=== PATIENT | female | born 1990 | race Caucasian/White ===

== ENCOUNTER 2017-07-26 09:04 | Inpatient (IN) | payer MEDICAID ==
[~2017-07-26] VITALS: Ht 152.4 cm; Wt 65.6 kg
[~2017-07-26 09:04] MED LIST: AMOX500T PO; PREN1TAB17 BU; PREN1TAB17 PO; PREN1TAB62 PO
--- NOTE | 2017-07-26 09:37 | RADRPT ---
PROCEDURE: US OB biophysical profile. CLINICAL INDICATION: decreased movements, low CARMEN-A TECHNIQUE: Multiple sonographic images of the pelvis were obtained. The images were reviewed on a PACS workstation. COMPARISON: No prior studies are available for comparison. FINDINGS: There is a single viable intrauterine gestation. Cardiac activity is present with 137 beats per min adrienne. There is a vertex presentation. The placenta is anterior. There is no evidence of placental abruption. There is a slightly increased amount of amniotic fluid with an KLAUS = 7.8 cm. Biophysical profile: movement 2/2 tone 2/2. breathing 2/2 KLAUS 2/2 Total 04/09 RPTAT: AA . IMPRESSION: Normal biophysical profile. Mild oligohydramnios. . .Ethan Austin MD, Date Time Electronically viewed and signed by .Ethan Austin MD, MD on 07/26/2017 09:37 .S/
[2017-07-26 09:49] VITALS: BP 121/74; PULSE 82; Ht 152.4 cm; Wt 65.6 kg
[2017-07-26] MEDS ORDERED: LACTATED RINGER'S 1,000 ML IV SCH (12:20)
[2017-07-26] MEDS: LACTATED RINGER'S 1,000 ML IV SCH ×2 (16:30→23:10)
--- NOTE | 2017-07-26 16:30 | HP ---
Date/Time of Note Date/Time of Note DATE: 07/26/17 TIME: 16:27 OB - History Hx of Present Chief Complaint: Antepartum testing Estimated Due Date: Aug 13, 2017 : 2 Para: 1 Spontaneous : 0 Therapeutic : 0 Care: Good Care Ultrasounds: Normal mid trimester US Obstetrical Complications: None Medical Complications: None Past Family/Social History * Past Medical, Surgical, Family and Obstetric Histories reviewed from chart. OB Admission Exam Vital Signs Vital Signs Vital Signs Date Time Temp Pulse Resp B/P Pulse Ox O2 Delivery O2 Flow Rate FiO2 07/26/17 09:49 98.5 82 121/74 Physical Exam HEENT: WNL Heart: Rhythm Normal Lungs: Clear, Equal Abdomen: WNL Extremities: Normal Reflexes: Normal Heart Rate: 130's Accelerations: Accelerations Present Decelerations: No Decelerations Varibility: Moderate OB Assessment/Plan Reason for admission: other (oligohydramnios) Plan: Other Other plan: Admit IV hydration Continuous monitoring Repeat KLAUS on 07/27/2017. ALKA REDMAN MD Jul 26, 2017 16:30
[2017-07-27] MEDS: LACTATED RINGER'S 1,000 ML IV SCH ×2 (05:30→11:53)
--- NOTE | 2017-07-27 09:12 | RADRPT ---
PROCEDURE: US evaluation of amniotic fluid volume. CLINICAL INDICATION: Low amniotic fluid volume. TECHNIQUE: Multiple sonographic images of the gravid uterus were obtained utilizing [place]scale [place]. Sagittal and transverse images were obtained. The images were reviewed on a PACS workstation . KLAUS was measured. COMPARISON: Biophysical profile dated 07/26/2017. FINDINGS: There is a single live intrauterine . heart rate is 146 beats per minute. Position is cephalic. Placenta is anterior grade II with no abruption or previa. KLAUS is 11.1 cm. (Normal = 5-20 cm.) IMPRESSION: 1. KLAUS is 11.1 cm. RPTAT: QQ .Irving Adhikari MD, MD Date Time Electronically viewed and signed by .Irving Adhikari MD, on 07/27/2017 09:11 .R/
--- NOTE | 2017-07-27 17:27 | QN ---
Documentation Comment NST Category I KLAUS 11 ALKA REDMAN MD Jul 27, 2017 17:27
--- NOTE | 2017-07-27 17:28 | DS ---
Date/Time of Note Date/Time of Note DATE: 07/27/17 TIME: 17:27 Obstetrical Discharge Record Final Diagnosis Final Diagnosis: Term not delivered Other Final Diagnosis oligohydramnios Condition on Discharge Physical Assessment Voiding: Yes Bowel Movement: Yes Calf Tenderness: No Patient Condition: Stable ALKA REDMAN MD Jul 27, 2017 17:28
== END 2017-07-27 18:06 | disposition home or self-care (01) | DRG 782 ==
LOC: OBT 09:04 → L-D 09:05 → OBT 12:05 → UNDOADMIN 12:05 → L-D 12:05 → OBG 14:00
PROVIDERS: ADMIT Obstetrics & Gynecology; ATTEND Obstetrics & Gynecology
DX: O41.00X0 Oligohydramnios, unspecified trimester, not applicable or unspecified (principal); Z3A.00 Weeks of gestation of pregnancy not specified
CPT/HCPCS: 76815; 76818; G0463; J7120

== ENCOUNTER 2017-07-31 11:11 | Inpatient (IN) | payer MEDICAID ==
[~2017-07-31] VITALS: Ht 157.5 cm; Wt 65.0 kg
[~2017-07-31 11:11] MED LIST changes: -PREN1TAB17 PO; -PREN1TAB62 PO
[2017-07-31 12:08] VITALS: Ht 157.5 cm; Wt 65.0 kg
[2017-07-31 12:09] VITALS: BP 124/80; PULSE 90; RESP 18
[2017-07-31] MEDS ORDERED: morphine SULFATE/PF (10 MG/10 ML) INJ ONE (12:55)
[2017-07-31] MEDS ORDERED: FENTAnyl 50 MCG/ML VIAL ONE (12:55)
[2017-07-31] MEDS ORDERED: PHENYLephrine (100 MCG/ML) 5ML SYG ONE (13:07)
[2017-07-31] MEDS ORDERED: DEXAMETHASONE 4 MG/ML 1 ML INJ ONE (13:08)
--- NOTE | 2017-07-31 13:14 | RADRPT ---
PROCEDURE: US OB biophysical profile. CLINICAL INDICATION: decreased movements, contractions TECHNIQUE: Multiple sonographic images of the pelvis were obtained. The images were reviewed on a PACS workstation. COMPARISON: US PELVIS 07/27/2017 FINDINGS: There is a single viable intrauterine gestation. Cardiac activity is present with 150 beats per min [place]. There is a vertex presentation. The placenta is anterior. There is no evidence of placental abruption. There is a decreased amount of amniotic fluid with an KLAUS = 6.0 cm. Biophysical profile: movement 2/2 tone 2/2. breathing 2/2 KLAUS 2/2 Total 04/09 RPTAT: AA . IMPRESSION: Normal biophysical profile. Oligohydramnios. . .Ethan Austin MD, Date Time Electronically viewed and signed by .Ethan Austin MD, on 07/31/2017 13:13 .S/
[2017-07-31 13:30] LABS: ADD UMIC YES; UR ASCORBIC ACID NEGATIVE (NEGATIVE); UR BILIRUBIN (Dip) NEGATIVE (NEGATIVE); UR BLOOD (Dip) NEGATIVE (NEGATIVE); UR CLARITY CLEAR (CLEAR); UR COLOR STRAW (YELLOW); UR GLUCOSE (Dip) NEGATIVE (NEGATIVE); UR KETONES (Dip) NEGATIVE (NEGATIVE); UR LEUKOCYTE ESTERASE (Dip) 1+ Leu/ul (NEGATIVE); UR NITRITE (Dip) NEGATIVE (NEGATIVE); UR RBC 1 /HPF (0-5); UR SPECIFIC GRAVITY (Dip) 1.005 (1.003-1.030); UR SQUAMOUS EPITHELIAL CELL FEW /HPF (FEW); UR TOTAL PROTEIN (Dip) NEGATIVE (NEGATIVE); UR UROBILINOGEN (Dip) NEGATIVE (NEGATIVE)
[2017-07-31] MEDS ORDERED: ONDANSETRON 4 MG INJ ONE (13:53)
[2017-07-31] MEDS ORDERED: LACTATED RINGER'S 1,000 ML IV ONE (14:00)
[2017-07-31] MEDS ORDERED: LIDOCAINE 1% (MPF) 30 ML INJ INJ PRN (14:00)
[2017-07-31] MEDS ORDERED: CARBOPROST 250 MCG INJ IM PRN (14:00)
[2017-07-31] MEDS ORDERED: MISOPROSTOL 200 MCG TAB PR PRN (14:00)
[2017-07-31] MEDS ORDERED: BUTORPHANOL 2 MG INJ IV PRN (14:00)
[2017-07-31] MEDS ORDERED: OXYTOCIN 30 UNITS/LR 500 ML IV PRN (14:00)
[2017-07-31] MEDS ORDERED: METHYLERGONOVINE 0.2 MG INJ IM PRN (14:00)
[2017-07-31] MEDS ORDERED: LACTATED RINGER'S 1,000 ML IV PRN (14:00)
[2017-07-31] MEDS ORDERED: IBUPROFEN 600 MG TAB PO PRN (14:00)
[2017-07-31] MEDS ORDERED: OXYTOCIN 30 UNITS/LR 500 ML IV SCH ×2 (14:00)
[2017-07-31] MEDS: LACTATED RINGER'S 1,000 ML IV SCH ×3 (14:22→21:38)
[2017-07-31 14:30] LABS: BASOPHILS % 0.1 % (0.0-2.0); EOSINOPHILS % 0.2 % (0.0-7.0); HEMATOCRIT 33.9 % (37.0-47.0); HEMOGLOBIN 11.5 g/dl (12.0-16.0); LYMPHOCYTES # 1.6 10^3/ul (0.8-2.9); LYMPHOCYTES % 18.5 % (15.0-51.0); MEAN CORPUSCULAR HEMOGLOBIN 27.4 pg (29.0-33.0); MEAN CORPUSCULAR HGB CONC 33.9 g/dl (32.0-37.0); MEAN CORPUSCULAR VOLUME 80.9 fl (82.0-101.0); MEAN PLATELET VOLUME 11.7 fl (7.4-10.4); MONOCYTE # 0.3 10^3/ul (0.3-0.9); MONOCYTES % 3.9 % (0.0-11.0); NEUTROPHIL # 6.6 10^3/ul (1.6-7.5); NEUTROPHILS % 76.7 % (39.0-77.0); PLATELET COUNT 207 10^3/UL (140-415); RED BLOOD COUNT 4.19 10^6/ul (4.20-5.40); RED CELL DISTRIBUTION WIDTH 13.5 % (11.5-14.5); WHITE BLOOD COUNT 8.6 10^3/ul (4.8-10.8)
[2017-07-31 14:43] LABS: INR 2.53; PROTIME 27.6 Sec (12.2-14.2); PT RATIO 2.2
--- NOTE | 2017-07-31 15:31 | HP ---
Date/Time of Note Date/Time of Note DATE: 07/31/17 TIME: 15:27 OB - History Hx of Present Chief Complaint: leakage of fluid Estimated Due Date: Aug 13, 2017 : 2 Para: 1 Spontaneous : 0 Therapeutic : 0 Care: Good Care Ultrasounds: Normal mid trimester US Obstetrical Complications: None Medical Complications: None Past Family/Social History * Past Medical, Surgical, Family and Obstetric Histories reviewed from chart. GBS Status: Negative OB Admission Exam Vital Signs Vital Signs Vital Signs Date Time Temp Pulse Resp B/P Pulse Ox O2 Delivery O2 Flow Rate FiO2 07/31/17 12:09 98.5 90 18 124/80 97 Room Air Physical Exam HEENT: WNL Heart: Rhythm Normal Lungs: Clear, Equal Abdomen: WNL Extremities: Normal Reflexes: Normal Cervical Dilatation: 1cm Effacement: 50% Station: -1 Membranes: Intact Heart Rate: 120's Accelerations: Accelerations Present Decelerations: No Decelerations Varibility: Moderate Last 72 hours Lab Results CBC & BMP 07/31/17 14:00 OB Assessment/Plan Reason for admission: other Other Assessment: oligohydramnios Plan: Other Other plan: IV hydration Continuous monitoring Rerpeat KLAUS on 08/01/2017 ALKA REDMAN MD Jul 31, 2017 15:31
[2017-07-31 16:21] LABS: PARTIAL THROMBOPLASTIN TIME 26.8 Sec (25.0-35.0)
[2017-08-01] MEDS: LACTATED RINGER'S 1,000 ML IV SCH ×4 (04:39→18:00)
[2017-08-01] MEDS ORDERED: FENTAnyl 2MCG/ML-ROPIV 0.2% 100 ML ONE (07:53)
[2017-08-01] MEDS ORDERED: NALOXONE (0.4 MG/ML) INJ IV PRN (08:30)
[2017-08-01] MEDS: FENTAnyl 2MCG/ML-ROPIV 0.2% 100 ML BAG EPI SCH ×2 (17:25→23:32)
[2017-08-01] MEDS ORDERED: OXYTOCIN 30 UNITS/LR 500 ML IV SCH (19:30)
[2017-08-01] MEDS ORDERED: ONDANSETRON 4 MG INJ IV PRN (21:00)
--- NOTE | 2017-08-02 00:11 | LDN ---
Date/Time of Note Date/Time of Note DATE: 08/02/17 TIME: 00:10 Delivery Summary Weeks of Gestation 38 weeks Placenta Delivered: Spontaneously Meconium: none Episiotomy: No Perineal laceration: 0 Anesthesia type: Epidural Estimated blood loss: 200 Sponge & Needle done & correct: Yes All needle counts correct: Yes Any foreign bodies felt in the: No Problems: Delivery Information Sex Sex: male Apgars 1 Minute: 9 5 Minute: 9 Suctioning Nose & mouth suctioned at mckenna: Yes Delee suction performed: No Umbilical Cord Umbilical cord with: 3 Vessels Cord presentations: no nuchal cord Cord Blood was obtained: Yes Mother & Baby Disposition Disposition Mom & Baby to Maternity; Good: Yes ALKA REDMAN MD Aug 02, 2017 00:11
[2017-08-02] MEDS ORDERED: LACTATED RINGER'S 1,000 ML IV* SCH (00:12)
[2017-08-02] MEDS ORDERED: MISOPROSTOL 200 MCG TAB PR PRN (00:30)
[2017-08-02] MEDS ORDERED: LANOLIN 7 GM TUBE TOP PRN (00:30)
[2017-08-02] MEDS ORDERED: CARBOPROST 250 MCG INJ IM PRN (00:30)
[2017-08-02] MEDS ORDERED: ACETAMINOPHEN 325 MG TAB PO PRN (00:30)
[2017-08-02] MEDS ORDERED: OXYTOCIN 30 UNITS/LR 500 ML IV PRN (00:30)
[2017-08-02] MEDS ORDERED: WITCH HAZEL/GLYCERIN PAD PR PRN (00:30)
[2017-08-02] MEDS ORDERED: HYDROCODONE/APAP (5/325) TAB PO PRN (00:30)
[2017-08-02] MEDS ORDERED: BENZOCAINE 20% 56 ML SPRAY TOP PRN (00:30)
[2017-08-02] MEDS ORDERED: METHYLERGONOVINE 0.2 MG INJ IM PRN (00:30)
[2017-08-02] MEDS ORDERED: DIBUCAINE 1% 30 GM OINT PR PRN (00:30)
[2017-08-02 01:08] LABS: ADD UMIC YES; UR ASCORBIC ACID NEGATIVE (NEGATIVE); UR BILIRUBIN (Dip) NEGATIVE (NEGATIVE); UR BLOOD (Dip) 2+ mg/dL (NEGATIVE); UR CLARITY CLEAR (CLEAR); UR COLOR STRAW (YELLOW); UR GLUCOSE (Dip) NEGATIVE (NEGATIVE); UR KETONES (Dip) 1+ mg/dL (NEGATIVE); UR LEUKOCYTE ESTERASE (Dip) TRACE Leu/ul (NEGATIVE); UR NITRITE (Dip) NEGATIVE (NEGATIVE); UR RBC 15 /HPF (0-5); UR SPECIFIC GRAVITY (Dip) 1.005 (1.003-1.030); UR SQUAMOUS EPITHELIAL CELL FEW /HPF (FEW); UR TOTAL PROTEIN (Dip) NEGATIVE (NEGATIVE); UR UROBILINOGEN (Dip) NEGATIVE (NEGATIVE)
[2017-08-02 01:19] LABS: BASOPHILS % 0.1 % (0.0-2.0); HEMATOCRIT 33.7 % (37.0-47.0); HEMOGLOBIN 11.5 g/dl (12.0-16.0); LYMPHOCYTES # 0.7 10^3/ul (0.8-2.9); LYMPHOCYTES % 4.4 % (15.0-51.0); MEAN CORPUSCULAR HGB CONC 34.1 g/dl (32.0-37.0); MEAN CORPUSCULAR VOLUME 82.2 fl (82.0-101.0); MEAN PLATELET VOLUME 11.6 fl (7.4-10.4); MONOCYTE # 0.6 10^3/ul (0.3-0.9); MONOCYTES % 3.3 % (0.0-11.0); NEUTROPHIL # 15.5 10^3/ul (1.6-7.5); NEUTROPHILS % 91.5 % (39.0-77.0); PLATELET COUNT 205 10^3/UL (140-415); RED CELL DISTRIBUTION WIDTH 13.3 % (11.5-14.5); WHITE BLOOD COUNT 16.9 10^3/ul (4.8-10.8)
[2017-08-02 01:35] LABS: INR 1.02; PROTIME 13.5 Sec (11.9-14.9); PT RATIO 1.1
[2017-08-02 01:40] LABS: ALBUMIN 3.3 g/dl (3.3-4.9); ALBUMIN/GLOBULIN RATIO 0.97; BILIRUBIN,INDIRECT 0.6 mg/dl (0-1.1); BILIRUBIN,TOTAL 0.6 mg/dl (0.2-1.3); CALCIUM 9.7 mg/dl (8.4-10.2); CREATININE 0.49 mg/dl (0.44-1.00); POTASSIUM 3.6 mmol/L (3.5-5.1); TOTAL PROTEIN 6.7 g/dl (6.1-8.1); URIC ACID 5.3 mg/dl (3.1-7.9)
[2017-08-02 01:42] LABS: FIBRIN SPLIT PRODUCT <10 ug/ml (<10)
[2017-08-02 02:30] VITALS: BP 123/68; PULSE 99; RESP 18
[2017-08-02 04:00] VITALS: BP 116/70; PULSE 89; RESP 19
[2017-08-02] MEDS: IBUPROFEN 600 MG TAB PO SCH ×3 (05:29→17:34)
[2017-08-02 08:00] VITALS: BP 104/58; PULSE 88
[2017-08-02] MEDS: SENNA/DOCUSATE NA (8.6MG/50MG) TAB PO SCH ×2 (09:44→20:50)
[2017-08-02 12:00] VITALS: BP 120/76; PULSE 78; RESP 20
[2017-08-02 15:55] VITALS: BP 109/72; PULSE 79; RESP 19
--- NOTE | 2017-08-02 15:59 | PN ---
Date/Time of Note Date/Time of Note DATE: 08/02/17 TIME: 15:57 OB Subjective Subjective Subjective August 02, 2017 Post day 1 Patient is doing well, Ambulatory She is afebrile Abdomen is soft , Fundus is firm Moderate amount of lochia Breasts are soft, Nipples are intact No calf tenderness. Perineum is healing well. Laboratory Tests Test 08/02/17 00:15 08/02/17 00:59 Urine Color STRAW Urine Clarity CLEAR Urine pH 8.0 Urine Specific [place] 1.005 Urine Ketones 1+mg/dL Urine Nitrite NEGATIVEmg/dL Urine Bilirubin NEGATIVEmg/dL Urine Urobilinogen NEGATIVEmg/dL Urine Leukocyte Esterase TRACELeu/ul Urine Microscopic RBC 15/HPF Urine Microscopic WBC 6/HPF Urine Squamous Epithelial Cells FEW/HPF Urine Hemoglobin 2+mg/dL Urine Glucose NEGATIVEmg/dL Urine Total Protein NEGATIVEmg/dl White Blood Count 16.910^3/ul Red Blood Count 4.1010^6/ul Hemoglobin 11.5g/dl Hematocrit 33.7% Mean Corpuscular Volume 82.2fl Mean Corpuscular Hemoglobin 28.0pg Mean Corpuscular Hemoglobin Concent 34.1g/dl Red Cell Distribution Width 13.3% Platelet Count 74328^3/UL Mean Platelet Volume 11.6fl Neutrophils % 91.5% Lymphocytes % 4.4% Monocytes % 3.3% Eosinophils % 0.0% Basophils % 0.1% Nucleated Red Blood Cells % 0.0/100WBC Neutrophils # 15.510^3/ul Lymphocytes # 0.710^3/ul Monocytes # 0.610^3/ul Eosinophils # 0.010^3/ul Basophils # 0.010^3/ul Nucleated Red Blood Cells # 0.010^3/ul Prothrombin Time 13.5Sec Prothrombin Time Ratio 1.1 INR International Normalized Ratio 1.02 Activated Partial Thromboplast Time 27.0Sec Fibrinogen 562.0mg/dl Plasma Fibrin Degradation Products <10ug/ml Sodium Level 141mmol/L Potassium Level 3.6mmol/L Chloride Level 106mmol/L Carbon Dioxide Level 25mmol/L Anion Gap 14 Blood Urea Nitrogen 4mg/dl Creatinine 0.49mg/dl Glucose Level 103mg/dl Uric Acid 5.3mg/dl Calcium Level 9.7mg/dl Total Bilirubin 0.6mg/dl Direct Bilirubin 0.00mg/dl Indirect Bilirubin 0.6mg/dl Aspartate Amino Transf (AST/SGOT) 29IU/L Alanine Aminotransferase (ALT/SGPT) 33IU/L Alkaline Phosphatase 169IU/L Total Protein 6.7g/dl Albumin 3.3g/dl Globulin 3.40g/dl Albumin/Globulin Ratio 0.97 Current Medications Medications (Trade) Dose Ordered Sig/Vivi Route PRN Reason Start Time Stop Time Status Last Admin Dose Admin Morphine Sulfate (Duramorph) 10 mg STK-MED ONCE .ROUTE 07/31/17 12:55 07/31/17 12:56 DC Fentanyl (Sublimaze) 100 mcg STK-MED ONCE .ROUTE 07/31/17 12:55 07/31/17 12:56 DC Phenylephrine HCl (Meek-Synephrine Inj Syg) 500 mcg STK-MED ONCE .ROUTE 07/31/17 13:07 07/31/17 13:08 DC Dexamethasone 4 mg 4 mg STK-MED ONCE .ROUTE 07/31/17 13:08 07/31/17 13:09 DC Lactated Ringer's (Lr) 1,000 ml @ 150 mls/hr Q6H40M IV 07/31/17 13:38 08/02/17 04:04 DC 08/01/17 18:00 Butorphanol Tartrate (Stadol) 2 mg Q2H PRN IV PAIN 07/31/17 14:00 08/02/17 04:04 DC 08/01/17 04:10 Lidocaine 30 ml 30 ml ONCE PRN INJ EPISIOTOMY/TEARING 07/31/17 14:00 08/02/17 04:04 DC Oxytocin/Lactated Ringer's 500 ml @ 125 mls/hr ONCE -MAY REPEAT X1 IV 07/31/17 14:00 08/02/17 04:04 DC Oxytocin/Lactated Ringer's 500 ml @ 125 mls/hr ONCE IV 07/31/17 14:00 08/02/17 04:04 DC 08/02/17 00:26 Ibuprofen 600 mg 600 mg ONCE PRN PO Mild Pain (Pain Score 1-3) 07/31/17 14:00 08/02/17 04:04 DC 08/02/17 00:18 Lactated Ringer's 1,000 ml @ 2,000 mls/hr Q30M PRN IV PRE-EPIDURAL BOLUS 07/31/17 14:00 08/02/17 04:04 DC Oxytocin/Lactated Ringer's 500 ml @ 0 mls/hr ONCE PRN IV For Hemorrhage Management 07/31/17 14:00 08/02/17 04:04 DC Methylergonovine Maleate (Methergine) 0.2 mg ONCE PRN IM VAGINAL BLEEDING 07/31/17 14:00 08/02/17 04:04 DC Carboprost Tromethamine (Hemabate) 250 mcg ONCE PRN IM VAGINAL BLEEDING 07/31/17 14:00 08/02/17 04:04 DC Misoprostol 1000 mcg 1,000 mcg ONCE PRN OR VAGINAL BLEEDING 07/31/17 14:00 08/02/17 04:04 DC Lactated Ringer's (Lr) 1,000 ml @ 1,000 mls/hr Q1H ONCE IV 07/31/17 14:00 07/31/17 14:59 DC 07/31/17 15:26 Ondansetron HCl 4 mg 4 mg STK-MED ONCE .ROUTE 07/31/17 13:53 07/31/17 13:54 DC Fentanyl/ Ropivacaine 100 ml @ ud STK-MED ONCE .ROUTE 08/01/17 07:53 08/01/17 07:54 DC Naloxone HCl (Narcan) 0.2 mg Q2M PRN IV FOR RESP RATE 8 OR LESS 08/01/17 08:30 08/02/17 04:04 DC Fentanyl/ Ropivacaine 100 ml 100 ml EPIDURAL (PCEA) EPI 08/01/17 08:30 08/02/17 04:04 DC 08/01/17 23:32 Oxytocin/Lactated Ringer's 500 ml @ 0 mls/hr Q0M IV 08/01/17 19:30 08/02/17 04:05 DC 08/01/17 19:42 Ondansetron HCl 4 mg 4 mg Q6H PRN IV NAUSEA AND/OR VOMITING 08/01/17 21:00 08/02/17 04:05 DC Lactated Ringer's (Lr) 1,000 ml @ 125 mls/hr Q8H IV* 08/02/17 00:12 08/02/17 04:49 DC Ibuprofen (Motrin) 600 mg Q6 PO 08/02/17 06:00 08/02/17 12:33 Acetaminophen (Tylenol Tab) 650 mg Q4H PRN PO PAIN LEVEL 1-5 08/02/17 00:30 Acetaminophen/ Hydrocodone Bitart ([place] (5/325)) 1 tab Q4H PRN PO PAIN LEVEL 1-5 08/02/17 00:30 08/02/17 01:46 Senna/Docusate Sodium (Senokot-S) 1 tab BID PO 08/02/17 09:00 08/02/17 09:44 Witch [place]/ Glycerin (Tucks Pads) 1 pad BEDSIDE MEDICATION PRN OR HEMORRHOID/EPISIOTMY PAIN 08/02/17 00:30 Benzocaine (Dermoplast [place]) 1 spray BEDSIDE MEDICATION PRN TOP HEMORRHOID/EPISIOTMY PAIN 08/02/17 00:30 Dibucaine (Nupercainal) 1 applic BEDSIDE MEDICATION PRN OR HEMORRHOID/EPISIOTMY PAIN 08/02/17 00:30 Lanolin (Fxo-P-Xhyufq) 1 applic BEDSIDE MEDICATION PRN TOP BEDSIDE FOR OLIVE TO NIPPLES 08/02/17 00:30 Diphtheria/ Tetanus/Acell Pertussis 0.5 ml 0.5 ml ONCE ONCE IM* 08/04/17 09:00 08/04/17 09:01 Oxytocin/Lactated Ringer's 500 ml @ 0 mls/hr ONCE PRN IV For Hemorrhage Management 08/02/17 00:30 Methylergonovine Maleate (Methergine) 0.2 mg ONCE PRN IM VAGINAL BLEEDING 08/02/17 00:30 Carboprost Tromethamine (Hemabate) 250 mcg ONCE PRN IM VAGINAL BLEEDING 08/02/17 00:30 Misoprostol (Cytotec) 1,000 mcg ONCE PRN OR VAGINAL BLEEDING 08/02/17 00:30 Influenza Virus Vaccine (Fluzone) 0.5 ml ONCE ONCE IM* 08/03/17 09:00 08/03/17 09:01 Breast feeding the new born. PRISCILLA MULTANI MD Aug 02, 2017 15:59
[2017-08-02 19:45] VITALS: BP 107/69; PULSE 78; RESP 17
[2017-08-03] MEDS: IBUPROFEN 600 MG TAB PO SCH ×3 (00:04→12:56)
[2017-08-03 04:20] VITALS: BP 107/69; PULSE 78; RESP 17
[2017-08-03 08:00] VITALS: BP 109/66; PULSE 80; RESP 19
[2017-08-03] MEDS: SENNA/DOCUSATE NA (8.6MG/50MG) TAB PO SCH (08:04)
[2017-08-03] MEDS ORDERED: INFLUENZA VIRUS VACCINE 0.5 ML (DISPENSING) IM* ONE (09:00)
[2017-08-03 09:08] LABS: BASOPHILS % 0.2 % (0.0-2.0); EOSINOPHILS # 0.1 10^3/ul (0.0-0.5); EOSINOPHILS % 0.9 % (0.0-7.0); HEMATOCRIT 30.2 % (37.0-47.0); LYMPHOCYTES # 1.7 10^3/ul (0.8-2.9); LYMPHOCYTES % 15.4 % (15.0-51.0); MEAN CORPUSCULAR HEMOGLOBIN 27.5 pg (29.0-33.0); MEAN CORPUSCULAR HGB CONC 33.1 g/dl (32.0-37.0); MEAN CORPUSCULAR VOLUME 83.2 fl (82.0-101.0); MEAN PLATELET VOLUME 11.7 fl (7.4-10.4); MONOCYTE # 0.5 10^3/ul (0.3-0.9); MONOCYTES % 4.4 % (0.0-11.0); NEUTROPHIL # 8.8 10^3/ul (1.6-7.5); NEUTROPHILS % 78.7 % (39.0-77.0); PLATELET COUNT 187 10^3/UL (140-415); RED BLOOD COUNT 3.63 10^6/ul (4.20-5.40); RED CELL DISTRIBUTION WIDTH 13.8 % (11.5-14.5); WHITE BLOOD COUNT 11.1 10^3/ul (4.8-10.8)
[2017-08-03] MEDS ORDERED: DIPHTH/TET/ACEL PERTUSS (ADULT) 0.5 ML VIAL IM* ONE (11:00)
--- NOTE | 2017-08-03 14:55 | DS ---
Date/Time of Note Date/Time of Note DATE: 08/03/17 TIME: 14:55 Obstetrical Discharge Record Final Diagnosis Final Diagnosis: Term delivered Vaginal Delivery Obstetrical Delivery: Spontaneous Condition on Discharge Physical Assessment Voiding: Yes Bowel Movement: Yes Breast: Soft, non-tender, Filling Fundus: Firm Calf Tenderness: No Patient Condition: Stable ALKA REDMAN MD Aug 03, 2017 14:55
[2017-08-03 16:19] VITALS: BP 128/75; RESP 16
[2017-08-04] MEDS ORDERED: DIPHTH/TET/ACEL PERTUSS (ADULT) 0.5 ML VIAL IM* ONE (09:00)
== END 2017-08-03 16:40 | disposition home or self-care (01) | DRG 775 ==
LOC: L-D 11:11 → OBT 11:11 → L-D 13:35 → OBT 13:54 → L-D 18:18 → PP1 08-02 02:20
PROVIDERS: ADMIT Obstetrics & Gynecology; ATTEND Obstetrics & Gynecology
PROC: 10E0XZZ Delivery of Products of Conception, External Approach (ICD-10-PCS; principal; 2017-08-02)
DX: O80 Encounter for full-term uncomplicated delivery (principal); Z37.0 Single live birth; Z3A.38 38 weeks gestation of pregnancy
CPT/HCPCS: 62319; 76818; 80053; 81001; 84112; 84560; 85025; 85362; 85384; 85610; 85730; 86592; 86900; 86901; 90686; 90715; G0463; J0595; J1100; J2274; J2370; J2405; J2590; J3010; J7120

== ENCOUNTER 2018-05-13 19:04 | Emergency (ER) | END 2018-05-13 23:30 | disposition home or self-care (01) ==